=== PATIENT | female | born 1960 | race Caucasian/White ===

== ENCOUNTER 2022-06-05 12:01 | Emergency (ER) | payer OTHER ==
[2022-06-05 12:10] VITALS: TEMP 97.8; BMI 41.9
[2022-06-05 13:07] LABS: BASO % 0.8 % (0-2.0); EOS % 2.2 % (0-4.5); HEMATOCRIT 38.8 % (32.4-45.2); LYMPH % 36.6 % (8-40); MCH 27.7 pg (25.7-33.7); MCHC 33.5 g/dl (32.0-36.0); MEAN CELL VOLUME 82.8 fl (80-96); MEAN PLT VOLUME 8.3 fl (7.5-11.1); MONO % 6.2 % (3.8-10.2); NEUT % 54.2 % (42.8-82.8); PLATELET COUNT 277 10^3/uL (134-434); RBC 4.69 M/mm3 (3.60-5.2); RDW 13.4 % (11.6-15.6); WHITE BLOOD COUNT 8.3 K/mm3 (4.0-10.0)
[2022-06-05 13:28] LABS: CALCIUM 9.5 mg/dL (8.5-10.1)
[2022-06-05 13:29] LABS: BLOOD UREA NITROGEN 10.2 mg/dL (7-18)
[2022-06-05 13:32] LABS: CREATININE 0.5 mg/dL (0.55-1.3)
[2022-06-05 13:33] LABS: TOT PROT 7.9 g/dl (6.4-8.2)
[2022-06-05 13:34] LABS: BILIRUBIN,TOTAL 0.3 mg/dL (0.2-1)
[2022-06-05 14:43] VITALS: BP 148/80; PULSE 76; RESP 18
== END 2022-06-05 15:51 | disposition home or self-care (01) ==
LOC: JER 12:01
DX: R55 Syncope and collapse (principal); R05.1 Acute cough; J02.9 Acute pharyngitis, unspecified; J34.89 Other specified disorders of nose and nasal sinuses; Z20.822 Contact with and (suspected) exposure to COVID-19
CPT/HCPCS: 0241U-QW; 36415; 71045-TC-FY; 80053; 84484; 85025; 93005; 93010; 99285-25